=== PATIENT | female | born 1960 | race Caucasian/White ===

== ENCOUNTER 2023-11-07 11:44 | Emergency (ER) | payer OTHER ==
[~2023-11-07] VITALS: Ht 170.2 cm; Wt 77.3 kg
[2023-11-07 12:04] VITALS: BP 144/95; PULSE 83; TEMP 98
== END 2023-11-07 14:15 | disposition left against medical advice (07) ==
LOC: COL.ER 11:44
DX: S61.411A Laceration without foreign body of right hand, initial encounter (principal); Z79.82 Long term (current) use of aspirin; W27.8XXA Contact with other nonpowered hand tool, initial encounter